=== PATIENT | female | born 1940 | race Caucasian/White ===

== ENCOUNTER 2020-11-06 18:42 | Inpatient (IN) | payer MEDICARE ==
[~2020-11-06] VITALS: Ht 177.8 cm; Wt 106.8 kg
[2020-11-06 19:45] LABS: BASOPHIL 0.7 % (0-2); EOSINOPHIL 2.7 % (0-7); HCT 43.8 % (37.0-47.0); HGB 14.6 g/dl (12.5-16.0); LYMPHOCYTE 24.4 % (15-48); MCH 29.2 pg (25.0-31.0); MCHC 33.3 g/dL (32.0-36.0); MCV 87.6 fL (78.0-100.0); MPV 10.8 fL (6.0-9.5); NRBC 0; PLT 166 K/uL (150-400); RDW 12.5 % (11.5-14.0); WBC 5.9 K/uL (4.0-10.5)
[2020-11-06 19:55] LABS: ALBUMIN 3.6 g/dL (3.4-5.0); BILIRUBIN - DIRECT 0.1 mg/dL (0.00-0.20); BILIRUBIN - TOTAL 0.4 mg/dL (0.2-1.0); BUN/CREAT RATIO (CALC) 15.5 RATIO; CREATININE 1.1 mg/dL (0.51-0.95); GLOBULIN (CALCULATION) 3.4 g/dL; POTASSIUM 3.9 mmol/L (3.5-5.1)
[2020-11-06 20:59] LABS: BILIRUBIN NEGATIVE (NEGATIVE); BLOOD NEGATIVE Ery/uL (NEGATIVE); CLARITY CLEAR (CLEAR); COLOR YELLOW (YELLOW); GLUCOSE (U) NORMAL (NORMAL); LEUKOCYTES 2+ Leu/uL (NEGATIVE); NITRITE NEGATIVE (NEGATIVE); PROTEIN NEGATIVE (NEGATIVE); UROBILINOGEN 0.2 mg/dL (0.2-1.0)
[2020-11-06 21:07] LABS: AMORPHOUS URATES CRYSTALS MODERATE; BACTERIA TRACE; URINARY RBC RARE
[2020-11-06] MEDS ORDERED: EZETIMIBE10 MG PO (23:32)
[2020-11-06] MEDS ORDERED: LASIX40 MG PO (23:33)
[2020-11-06] MEDS ORDERED: DILTIAZEM 24HR240 M1 PO (23:34)
[2020-11-06] MEDS ORDERED: MELOXICAM15 MG PO (23:35)
[2020-11-06] MEDS ORDERED: POTASSIUM CHLO10 ME2 PO (23:36)
[2020-11-06] MEDS ORDERED: BAYER CHEWABLE81 MG PO (23:37)
[2020-11-07 10:37] LABS: BASOPHIL 0.7 % (0-2); EOSINOPHIL 1.9 % (0-7); HCT 42.8 % (37.0-47.0); HGB 14.5 g/dl (12.5-16.0); LYMPHOCYTE 21.3 % (15-48); MCH 29.5 pg (25.0-31.0); MCHC 33.9 g/dL (32.0-36.0); MONOCYTE 9.5 % (0-12); MPV 10.1 fL (6.0-9.5); NEUTROPHIL 66.3 % (41-80); NRBC 0; PLT 145 K/uL (150-400); RBC 4.92 M/uL (4.20-5.40); RDW 12.4 % (11.5-14.0); WBC 5.8 K/uL (4.0-10.5)
[2020-11-07 10:58] LABS: BILIRUBIN - TOTAL 0.5 mg/dL (0.2-1.0); BUN/CREAT RATIO (CALC) 14.1 RATIO; CREATININE 0.99 mg/dL (0.51-0.95); GLOBULIN (CALCULATION) 3.8 g/dL; POTASSIUM 3.9 mmol/L (3.5-5.1); TOTAL PROTEIN 6.8 g/dL (6.4-8.2)
== END 2020-11-07 13:39 | disposition other institution (70) | DRG 281 ==
LOC: FER 18:42 → FMS 21:35 → FER 22:25 → FMS 11-07 12:55
PROVIDERS: Nurse Practitioner; Student in an Organized Health Care Education/Training Program; ADMIT Allergy & Immunology Allergy
DX: I16.0 Hypertensive urgency (principal); I21.A1 Myocardial infarction type 2; N39.0 Urinary tract infection, site not specified; Z20.822 Contact with and (suspected) exposure to COVID-19; I10 Essential (primary) hypertension; K21.9 Gastro-esophageal reflux disease without esophagitis; E78.5 Hyperlipidemia, unspecified; Z98.890 Other specified postprocedural states; Z90.710 Acquired absence of both cervix and uterus; Z90.89 Acquired absence of other organs; Z79.899 Other long term (current) drug therapy; Z79.82 Long term (current) use of aspirin; Z85.828 Personal history of other malignant neoplasm of skin
CPT/HCPCS: 36415; 71045; 80048; 80053; 80076; 81001; 83735; 83880; 84484; 85025; 85730; 93005; G0378; J0696; J1644; J2405; U0002

== ENCOUNTER 2020-12-13 11:34 | Emergency (ER) | payer MEDICARE, OTHER ==
[~2020-12-13 11:34] MED LIST: BAYER CHEWABLE81 MG PO; DILTIAZEM 24HR240 M1 PO; EZETIMIBE10 MG PO; LASIX40 MG PO; MELOXICAM15 MG PO; POTASSIUM CHLO10 ME2 PO
[2020-12-13 12:54] LABS: BASOPHIL 0.6 % (0-2); EOSINOPHIL 0.7 % (0-7); HCT 43.8 % (37.0-47.0); HGB 14.5 g/dl (12.5-16.0); LYMPHOCYTE 12.5 % (15-48); MCH 29.5 pg (25.0-31.0); MCHC 33.1 g/dL (32.0-36.0); MCV 89.2 fL (78.0-100.0); MONOCYTE 8.1 % (0-12); MPV 9.9 fL (6.0-9.5); NEUTROPHIL 77.8 % (41-80); NRBC 0; PLT 181 K/uL (150-400); RBC 4.91 M/uL (4.20-5.40); RDW 12.6 % (11.5-14.0); WBC 6.8 K/uL (4.0-10.5)
[2020-12-13 12:57] LABS: BILIRUBIN NEGATIVE (NEGATIVE); BLOOD NEGATIVE Ery/uL (NEGATIVE); CLARITY CLEAR (CLEAR); COLOR YELLOW (YELLOW); GLUCOSE (U) NORMAL (NORMAL); LEUKOCYTES NEGATIVE Leu/uL (NEGATIVE); NITRITE NEGATIVE (NEGATIVE); PROTEIN NEGATIVE (NEGATIVE); UROBILINOGEN 0.2 mg/dL (0.2-1.0); pH 6.5 (5.0-9.0)
[2020-12-13 13:03] LABS: INR 1.28 (0.9-1.2); PROTHROMBIN TIME 15.2 SECONDS (11.4-13.6); PTT 33.7 SECONDS (22.2-34.7)
[2020-12-13 13:11] LABS: ALBUMIN 3.5 g/dL (3.4-5.0); BILIRUBIN - TOTAL 0.4 mg/dL (0.2-1.0); BUN/CREAT RATIO (CALC) 22.7 RATIO; CREATININE 0.97 mg/dL (0.51-0.95); GLOBULIN (CALCULATION) 3.7 g/dL; TOTAL PROTEIN 7.2 g/dL (6.4-8.2)
[2020-12-13] MEDS ORDERED: ONDANSETRON ODT4 MG PO (17:17)
== END 2020-12-13 18:01 | disposition home or self-care (01) ==
LOC: FER 11:34
PROVIDERS: Emergency Medicine
DX: R01.1 Cardiac murmur, unspecified (principal); R06.02 Shortness of breath; J98.11 Atelectasis; R91.1 Solitary pulmonary nodule; R07.89 Other chest pain; Z86.711 Personal history of pulmonary embolism; Z95.9 Presence of cardiac and vascular implant and graft, unspecified; Z79.01 Long term (current) use of anticoagulants; Z79.899 Other long term (current) drug therapy
CPT/HCPCS: 36415; 71045; 71275; 80053; 81003; 84484; 85025; 85610; 85730; 93005; Q9967

== ENCOUNTER 2021-01-04 10:11 | Emergency (ER) | payer MEDICARE, OTHER ==
[~2021-01-04 10:11] MED LIST changes: +ONDANSETRON ODT4 MG PO
[2021-01-04 10:43] LABS: BASOPHIL 0.8 % (0-2); EOSINOPHIL 1.5 % (0-7); HCT 43.3 % (37.0-47.0); HGB 14.2 g/dl (12.5-16.0); LYMPHOCYTE 17.3 % (15-48); MCH 29.6 pg (25.0-31.0); MCHC 32.8 g/dL (32.0-36.0); MCV 90.4 fL (78.0-100.0); MONOCYTE 10.4 % (0-12); MPV 9.9 fL (6.0-9.5); NEUTROPHIL 69.8 % (41-80); NRBC 0; PLT 153 K/uL (150-400); RBC 4.79 M/uL (4.20-5.40); RDW 12.8 % (11.5-14.0); WBC 4.8 K/uL (4.0-10.5)
[2021-01-04 11:14] LABS: ALBUMIN 3.5 g/dL (3.4-5.0); BILIRUBIN - TOTAL 0.4 mg/dL (0.2-1.0); BUN/CREAT RATIO (CALC) 15.5 RATIO; CREATININE 1.03 mg/dL (0.51-0.95); GLOBULIN (CALCULATION) 3.6 g/dL; POTASSIUM 3.9 mmol/L (3.5-5.1); TOTAL PROTEIN 7.1 g/dL (6.4-8.2)
[2021-01-04 11:25] LABS: INR 1.07 (0.9-1.2); PROTHROMBIN TIME 13.3 SECONDS (11.8-13.4); PTT 31.2 SECONDS (24.4-34.7)
== END 2021-01-04 14:45 | disposition home or self-care (01) ==
LOC: FER 10:11
PROVIDERS: Internal Medicine
DX: R07.9 Chest pain, unspecified (principal); R06.02 Shortness of breath; I10 Essential (primary) hypertension; F17.210 Nicotine dependence, cigarettes, uncomplicated; R11.0 Nausea
CPT/HCPCS: 36415; 71045; 80053; 84484; 85025; 85610; 85730; 93005